=== PATIENT | male | born 1975 | race Caucasian/White ===

== ENCOUNTER 2025-03-06 19:29 | Inpatient (IN) | payer OTHER ==
[2025-03-06 21:57] VITALS: BMI 26.9
[2025-03-06] MEDS ORDERED: Electrolyte Replacement Protocol 1 EACH FS SCH (22:45)
[2025-03-06] MEDS: Albumin 25% 25 GM (100 mL) BOT IVPB SCH (23:50)
[2025-03-07 01:14] LABS: #Basophils 0.03 10x3/uL (0.0-0.2); #Eosinophils 0.09 10x3/uL (0.0-0.7); #Monocytes 1.10 10x3/uL (0.11-0.59); #Neutrophils 16.93 10x3/uL (1.40-6.50); %Basophils 0.2 % (0.0-1.0); %Eosinophils 0.5 % (0.0-10.0); %Lymphocytes 3.0 % (21.0-51.0); %Monocytes 5.8 % (0.0-10.0); %Neutrophils 89.9 % (42.0-75.0); Hematocrit 31.1 % (42.0-52.0); Hemoglobin 11.4 g/dL (14.0-18.0); Mean Corpuscular Hemoglobin 36.0 pg (27.0-31.0); Mean Corpuscular Volume 98.1 fL (78.0-98.0); Platelet Count 189 10x3/uL (130-400); Red Blood Cell (RBC) Count 3.17 mill/uL (4.70-6.10); White Blood Cell (WBC) Count 18.83 10x3/uL (4.8-10.8)
[2025-03-07 01:44] LABS: ALT (SGPT) 46 U/L (Less than 45); AST (SGOT) 148 U/L (11-34); Albumin 2.7 g/dL (3.1-4.5); Alkaline Phosphatase 189 U/L (40-110); Anion Gap 18 mmol/L (10-20); BUN (Urea Nitrogen) 13 mg/dL (8.9-20.6); Bilirubin, Direct 10.7 mg/dL (0.1-0.3); Bilirubin, Total 15.0 mg/dL (0.3-1.2); Calc. Creatinine Clearance 76 mL/min (70-130); Calcium 8.4 mg/dL (7.8-10.44); Carbon Dioxide 24 mmol/L (22-29); Chloride 88 mmol/L (98-107); Globulin 4.5 g/dL (2.4-3.5); Glucose 92 mg/dL (70-105); Magnesium 1.0 mg/dL (1.6-2.6); Potassium 3.0 mmol/L (3.5-5.1); Sodium 127 mmol/L (136-145)
[2025-03-07 02:01] LABS: Hep C IgG Ab NONREACTIVE S/CO (NonReactive); Hep C Index 0.15 S/CO (0-0.79)
[2025-03-07] MEDS: PHOS-NAK 1 PKT PACK PO PRN (02:04)
[2025-03-07] MEDS: Magnesium Sulfate In Water 4 GM in Premix 1 BAG IVPB PRN (02:05)
[2025-03-07 03:43] LABS: Cocaine Metabolite Screen Negative (Negative); THC/Cannabinoid Screen Negative (Negative); Tricyclic Screen Negative (Negative)
[2025-03-07] MEDS: cefTRIAXone\\ROCEPHIN 2 GM in Sodium Chloride 0.9% 100 ML IVPB SCH (03:43)
[2025-03-07] MEDS: VANCOMYCIN 2 GRAM/400 ML BAG 2 GM in Premix 1 BAG IVPB SCH (04:16)
[2025-03-07 05:20] LABS: Osmolality, Serum 264 mOsm/kg (275-295)
[2025-03-07] MEDS: Folic Acid 1 MG TAB PO SCH (08:18)
[2025-03-07] MEDS: Furosemide 40 MG TAB PO SCH (08:18)
[2025-03-07] MEDS: Lactulose 20 GM (30 mL) UDCUP PO SCH (08:18)
[2025-03-07] MEDS: Propranolol 10 MG TAB PO SCH (08:18)
[2025-03-07] MEDS: Albumin 25% 25 GM (100 mL) BOT IVPB SCH (08:19)
[2025-03-07] MEDS: Multivit, Therapeutic 1 TAB PO SCH (08:19)
[2025-03-07] MEDS: Pantoprazole 40 MG DR.TAB PO SCH (08:19)
[2025-03-07 08:41] LABS: Magnesium 2.2 mg/dL (1.6-2.6)
[2025-03-07] MEDS ORDERED: Enoxaparin 40 MG (0.4 mL) SYRINGE SC SCH (09:00)
[2025-03-07 09:23] LABS: Lipase 14 U/L (8-78)
[2025-03-07 09:25] LABS: Acetaminophen Less than 10 mcg/mL (Less than 10)
[2025-03-07 09:42] LABS: INR-International Normal Ratio 1.8; PTT 42.0 sec (22.9-36.1); Prothrombin Time 20.6 sec (12.0-14.7)
[2025-03-07 10:39] LABS: Potassium, Urine 30.3 mmol/L; Sodium, Urine Less than 20 mmol/L (Not Available); Urea Nitrogen, Random Urine 320 mg/dl
[2025-03-07 10:54] LABS: Osmolality, Urine 363 mOsm/kg (50-1200)
[2025-03-07] MEDS ORDERED: Vancomycin 1 GM in Premix 1 BAG IVPB SCH (18:00)
[2025-03-07 18:06] LABS: Bacteria/HPF None Seen HPF (None Seen); CAUTI Indications for Culture Fever or rigors; Glucose, Urine (Dipstick) Normal (Negative); Leukocyte Negative Leu/uL (Negative); Protein, Urine (Dipstick) Negative (Neg-Trace); RBC/HPF None Seen HPF (0-3); Specific Gravity, Urine 1.011 (1.002-1.036); WBC/HPF 0-3 HPF (0-3)
[2025-03-07 18:10] LABS: Urine Culture Reflex No No
[2025-03-07] MEDS: Enoxaparin 40 MG (0.4 mL) SYRINGE SC SCH (20:56)
[2025-03-08 05:32] LABS: Vancomycin, Random 17.7 ug/mL (See Comment)
[2025-03-08 05:33] LABS: INR-International Normal Ratio 2.0; Prothrombin Time 22.7 sec (12.0-14.7)
[2025-03-08 05:38] LABS: ALT (SGPT) 47 U/L (Less than 45); AST (SGOT) 110 U/L (11-34); Albumin 3.0 g/dL (3.1-4.5); Alkaline Phosphatase 142 U/L (40-110); Anion Gap 18 mmol/L (10-20); BUN (Urea Nitrogen) 13 mg/dL (8.9-20.6); Bilirubin, Total 16.7 mg/dL (0.3-1.2); Calc. Creatinine Clearance 92 mL/min (70-130); Calcium 8.4 mg/dL (7.8-10.44); Carbon Dioxide 22 mmol/L (22-29); Chloride 92 mmol/L (98-107); Globulin 3.7 g/dL (2.4-3.5); Glucose 112 mg/dL (70-105); Potassium 2.5 mmol/L (3.5-5.1); Sodium 129 mmol/L (136-145)
[2025-03-08 05:44] LABS: Campy jejuni + coli by PCR Negative (Negative); STEC Shiga Toxin 1+2 Negative (Negative); Salmonella spp. by PCR Negative (Negative); Shigella spp + EIEC by PCR Negative (Negative)
[2025-03-08] MEDS: Potassium Chloride 20 MEQ in Premix 1 BAG IVPB PRN (06:12)
[2025-03-08 06:13] LABS: Immunoglob - G (Total IgG) 1909 mg/dL (540-1822); Immunoglob - M (Total IgM) 381 mg/dL (22-240)
[2025-03-08 06:30] LABS: Ferritin 2806.01 ng/mL (22-322)
[2025-03-08 06:34] LABS: Vitamin B12 1280 pg/mL (211-911)
[2025-03-08 06:43] LABS: Hep A IgM AB NONREACTIVE (NonReactive); Hep A IgM S/CO 0.33 S/CO (0-0.79)
[2025-03-08] MEDS: Potassium Phosphate 45 MMOL in Sodium Chloride 0.9% 250 ML 250 ML IVPB SCH (06:51)
[2025-03-08] MEDS: Lactulose 20 GM (30 mL) UDCUP PO SCH (08:53)
[2025-03-08 14:14] LABS: #Basophils Less than 0.03 10x3/uL (0.0-0.2); #Eosinophils 0.28 10x3/uL (0.0-0.7); #Monocytes 0.64 10x3/uL (0.11-0.59); #Neutrophils 9.68 10x3/uL (1.40-6.50); %Basophils 0.2 % (0.0-1.0); %Eosinophils 2.5 % (0.0-10.0); %Lymphocytes 4.5 % (21.0-51.0); %Monocytes 5.7 % (0.0-10.0); %Neutrophils 86.2 % (42.0-75.0); Hematocrit 27.6 % (42.0-52.0); Hemoglobin 10.2 g/dL (14.0-18.0); Mean Corpuscular Hemoglobin 36.4 pg (27.0-31.0); Mean Corpuscular Volume 98.6 fL (78.0-98.0); Platelet Count 148 10x3/uL (130-400); Red Blood Cell (RBC) Count 2.80 mill/uL (4.70-6.10); White Blood Cell (WBC) Count 11.23 10x3/uL (4.8-10.8)
[2025-03-08 14:29] LABS: Anion Gap 10 mmol/L (10-20); BUN (Urea Nitrogen) 13 mg/dL (8.9-20.6); Calc. Creatinine Clearance 109 mL/min (70-130); Calcium 8.0 mg/dL (7.8-10.44); Carbon Dioxide 20 mmol/L (22-29); Chloride 98 mmol/L (98-107); Glucose 365 mg/dL (70-105); Potassium 2.9 mmol/L (3.5-5.1); Sodium 125 mmol/L (136-145)
[2025-03-08] MEDS: Melatonin 3 MG TAB PO PRN (23:10)
[2025-03-09 00:38] LABS: Hep B Surface AG-Rflx Sendout Negative (Negative); Hepatitis B Core Total Negative (Negative); Hepatitis B Surface AB-Sendout Non Reactive (.)
[2025-03-09 04:59] LABS: #Basophils 0.05 10x3/uL (0.0-0.2); #Eosinophils 0.30 10x3/uL (0.0-0.7); #Monocytes 0.73 10x3/uL (0.11-0.59); #Neutrophils 10.31 10x3/uL (1.40-6.50); %Basophils 0.4 % (0.0-1.0); %Eosinophils 2.5 % (0.0-10.0); %Lymphocytes 5.6 % (21.0-51.0); %Monocytes 6.0 % (0.0-10.0); %Neutrophils 84.4 % (42.0-75.0); Hematocrit 29.1 % (42.0-52.0); Hemoglobin 10.9 g/dL (14.0-18.0); Mean Corpuscular Hemoglobin 36.5 pg (27.0-31.0); Mean Corpuscular Volume 97.3 fL (78.0-98.0); Platelet Count 158 10x3/uL (130-400); Red Blood Cell (RBC) Count 2.99 mill/uL (4.70-6.10); White Blood Cell (WBC) Count 12.21 10x3/uL (4.8-10.8)
[2025-03-09 05:09] LABS: INR-International Normal Ratio 2.6; Prothrombin Time 28.1 sec (12.0-14.7)
[2025-03-09 06:24] LABS: ALT (SGPT) 42 U/L (Less than 45); AST (SGOT) 113 U/L (11-34); Albumin 2.6 g/dL (3.1-4.5); Alkaline Phosphatase 124 U/L (40-110); Anion Gap 15 mmol/L (10-20); BUN (Urea Nitrogen) 13 mg/dL (8.9-20.6); Bilirubin, Total 19.0 mg/dL (0.3-1.2); Calc. Creatinine Clearance 109 mL/min (70-130); Calcium 8.4 mg/dL (7.8-10.44); Carbon Dioxide 21 mmol/L (22-29); Chloride 97 mmol/L (98-107); Globulin 3.3 g/dL (2.4-3.5); Glucose 102 mg/dL (70-105); Magnesium 1.5 mg/dL (1.6-2.6); Potassium 2.9 mmol/L (3.5-5.1); Sodium 130 mmol/L (136-145)
[2025-03-09 07:14] LABS: Hepatitis A Total ABS Negative (Negative)
[2025-03-09] MEDS: Lactulose 20 GM (30 mL) UDCUP PO SCH (09:54)
[2025-03-09] MEDS: Thiamine 100 MG TAB PO SCH (23:38)
[2025-03-10 05:09] LABS: ALT (SGPT) 45 U/L (Less than 45); AST (SGOT) 128 U/L (11-34); Albumin 2.5 g/dL (3.1-4.5); Alkaline Phosphatase 127 U/L (40-110); Bilirubin, Direct 15.0 mg/dL (0.1-0.3); Bilirubin, Total 23.1 mg/dL (0.3-1.2)
[2025-03-10 05:10] LABS: Anion Gap 15 mmol/L (10-20); BUN (Urea Nitrogen) 12 mg/dL (8.9-20.6); Calc. Creatinine Clearance 112 mL/min (70-130); Calcium 8.8 mg/dL (7.8-10.44); Carbon Dioxide 23 mmol/L (22-29); Chloride 98 mmol/L (98-107); Glucose 99 mg/dL (70-105); Magnesium 2.0 mg/dL (1.6-2.6); Potassium 3.7 mmol/L (3.5-5.1); Sodium 132 mmol/L (136-145)
[2025-03-10 05:14] LABS: INR-International Normal Ratio 2.6; Prothrombin Time 27.8 sec (12.0-14.7)
[2025-03-10] MEDS: prednisoLONE 10 MG ODT TAB PO SCH (09:12)
[2025-03-10] MEDS: Propranolol 10 MG TAB PO SCH (09:24)
[2025-03-10 17:14] LABS: Smooth Muscle Total ABS 9 Units (0-19)
[2025-03-11 06:21] LABS: #Basophils 0.03 10x3/uL (0.0-0.2); #Eosinophils Less than 0.03 10x3/uL (0.0-0.7); #Monocytes 0.87 10x3/uL (0.11-0.59); #Neutrophils 14.45 10x3/uL (1.40-6.50); %Basophils 0.2 % (0.0-1.0); %Eosinophils 0.1 % (0.0-10.0); %Lymphocytes 3.3 % (21.0-51.0); %Monocytes 5.4 % (0.0-10.0); %Neutrophils 89.3 % (42.0-75.0); Hematocrit 30.9 % (42.0-52.0); Hemoglobin 11.3 g/dL (14.0-18.0); Mean Corpuscular Hemoglobin 36.7 pg (27.0-31.0); Mean Corpuscular Volume 100.3 fL (78.0-98.0); Platelet Count 180 10x3/uL (130-400); Red Blood Cell (RBC) Count 3.08 mill/uL (4.70-6.10); White Blood Cell (WBC) Count 16.18 10x3/uL (4.8-10.8)
[2025-03-11 06:42] LABS: Bilirubin, Total 25.7 mg/dL (0.3-1.2)
[2025-03-11 06:52] LABS: ALT (SGPT) 48 U/L (Less than 45); AST (SGOT) 139 U/L (11-34); Albumin 2.4 g/dL (3.1-4.5); Alkaline Phosphatase 138 U/L (40-110); Anion Gap 17 mmol/L (10-20); BUN (Urea Nitrogen) 12 mg/dL (8.9-20.6); Calc. Creatinine Clearance 124 mL/min (70-130); Calcium 8.7 mg/dL (7.8-10.44); Carbon Dioxide 21 mmol/L (22-29); Chloride 98 mmol/L (98-107); Globulin 3.7 g/dL (2.4-3.5); Glucose 120 mg/dL (70-105); Magnesium 1.6 mg/dL (1.6-2.6); Potassium 4.5 mmol/L (3.5-5.1); Sodium 131 mmol/L (136-145)
[2025-03-11] MEDS ORDERED: Furosemide 40 MG TAB PO SCH (07:38)
[2025-03-11] MEDS: Spironolactone 25 MG TAB PO SCH (08:14)
[2025-03-11] MEDS: Furosemide 20 MG TAB PO SCH (08:15)
[2025-03-12 06:55] LABS: #Basophils Less than 0.03 10x3/uL (0.0-0.2); #Eosinophils 0.06 10x3/uL (0.0-0.7); #Monocytes 1.01 10x3/uL (0.11-0.59); #Neutrophils 15.77 10x3/uL (1.40-6.50); %Basophils 0.1 % (0.0-1.0); %Eosinophils 0.3 % (0.0-10.0); %Lymphocytes 3.2 % (21.0-51.0); %Monocytes 5.7 % (0.0-10.0); %Neutrophils 89.0 % (42.0-75.0); Hematocrit 31.4 % (42.0-52.0); Hemoglobin 11.4 g/dL (14.0-18.0); Mean Corpuscular Hemoglobin 36.8 pg (27.0-31.0); Mean Corpuscular Volume 101.3 fL (78.0-98.0); Platelet Count 195 10x3/uL (130-400); Red Blood Cell (RBC) Count 3.10 mill/uL (4.70-6.10); White Blood Cell (WBC) Count 17.74 10x3/uL (4.8-10.8)
[2025-03-12 07:26] LABS: ALT (SGPT) 48 U/L (Less than 45); AST (SGOT) 121 U/L (11-34); Albumin 2.2 g/dL (3.1-4.5); Alkaline Phosphatase 139 U/L (40-110); Anion Gap 17 mmol/L (10-20); BUN (Urea Nitrogen) 15 mg/dL (8.9-20.6); Calc. Creatinine Clearance 117 mL/min (70-130); Calcium 8.7 mg/dL (7.8-10.44); Carbon Dioxide 20 mmol/L (22-29); Chloride 100 mmol/L (98-107); Globulin 3.6 g/dL (2.4-3.5); Glucose 91 mg/dL (70-105); Magnesium 1.4 mg/dL (1.6-2.6); Potassium 4.2 mmol/L (3.5-5.1); Sodium 133 mmol/L (136-145)
[2025-03-12 07:35] LABS: Bilirubin, Total 25.0 mg/dL (0.3-1.2)
[2025-03-12 08:48] VITALS: BP 101/66; TEMP 97.3
[2025-03-12 11:50] LABS: ANA Symphony (Qualitative) Negative (Negative); ANA Symphony (Quantitative) 0.4 Ratio (< 0.7 Negative); EliA Vaculitis New Method **** NEW METHOD ****; Mitochondrial Ab 1.2 U/mL (<4 Negative); dsDNA IgG Antibody 0.8 IU/mL (<10 Negative)
== END 2025-03-12 12:11 | disposition home or self-care (01) | DRG 433 ==
LOC: OBS 21:25 → OBSVTOIN 22:36
PROVIDERS: ADMIT Internal Medicine; ATTEND Internal Medicine
PROC: HZ2ZZZZ Detoxification Services for Substance Abuse Treatment (ICD-10-PCS; principal; 2025-03-06)
PROC: 30233J1 Transfusion of Nonautologous Serum Albumin into Peripheral Vein, Percutaneous Approach (ICD-10-PCS; 2025-03-06)
PROC: 3E03329 Introduction of Other Anti-infective into Peripheral Vein, Percutaneous Approach (ICD-10-PCS; 2025-03-07)
DX: K74.60 Unspecified cirrhosis of liver (principal); E72.20 Disorder of urea cycle metabolism, unspecified; N17.9 Acute kidney failure, unspecified; E87.1 Hypo-osmolality and hyponatremia; D72.829 Elevated white blood cell count, unspecified; F10.10 Alcohol abuse, uncomplicated; K70.10 Alcoholic hepatitis without ascites; I95.9 Hypotension, unspecified; E87.6 Hypokalemia; F17.210 Nicotine dependence, cigarettes, uncomplicated; K21.9 Gastro-esophageal reflux disease without esophagitis; Z90.49 Acquired absence of other specified parts of digestive tract; Z79.899 Other long term (current) drug therapy
CPT/HCPCS: 36415; 36416; 71046; 76700; 80048; 80053; 80076; 80143; 80202; 80306; 80307; 81001; 82103; 82105; 82248; 82390; 82570; 82607; 82728; 83516; 83540; 83690; 83735; 83930; 83935; 84100; 84133; 84145; 84300; 84540; 85025; 85610; 85730; 86015; 86038; 86141; 86225; 86704; 86706; 86708; 86709; 86803; 87040; 87081; 87340; 87505; 93976; J0132; J0696; J1650; J1815; J3375; J3475; J3480; J7030; J7050; J7070; P9047